=== PATIENT | female | born 1945 | race Caucasian/White ===

== ENCOUNTER 2022-03-01 08:40 | Day surgery (SDC) | payer OTHER ==
[2022-03-01 08:29] LABS: Absolute Lymphocytes (CBC) 0.9 K/uL (0.7-4.9); Hematocrit 34.3 % (36.0-45.0); MCV 86.6 fL (80-100); MPV 7.9 fL (7.6-11.3); RBC Red Blood Cell Count 3.97 M/uL (3.86-4.86)
--- NOTE | 2022-03-01 08:40 | RAD REPORT ---
EXAM DESCRIPTION: RAD - Chest Pa And Lat (2 Views) - 03/01/2022 8:29 am CLINICAL HISTORY: Pre op pending cholecystectomy COMPARISON: No comparisons FINDINGS: Lines: None. Lungs: No evidence of edema or pneumonia. Pleural: No significant pleural effusions or pneumothorax. Cardiac: The heart size is within normal limits. Mediastinum: Within normal limits. Bones: No acute fractures. Other: None IMPRESSION: No acute cardiopulmonary disease.
[2022-03-01 08:46] LABS: Albumin 3.4 g/dL (3.4-5.0); Bilirubin Direct 0.1 mg/dL (0-0.2); Bilirubin Total 0.4 mg/dL (0.2-1.0); Potassium 3.4 mmol/L (3.5-5.1); Protein, Total 7.4 g/dL (6.4-8.2)
[2022-03-01] MEDS ORDERED: propofoL 200 MG/20 ML VIAL IV ONE ×2 (09:29→09:30)
[2022-03-01] MEDS ORDERED: FENTANYL CITR 100 MCG/2 ML ONE ×2 (09:30)
[2022-03-01] MEDS ORDERED: ROCURONIUM 50 MG/5 ML VIAL IV ONE ×2 (09:30)
[2022-03-01] MEDS ORDERED: MIDAZOLAM HCL 2 MG/2 ML INJ ONE ×2 (09:30)
[2022-03-01] MEDS ORDERED: LIDOCAINE 2% MPF 5 ML VIAL ONE (09:30)
[2022-03-01] MEDS ORDERED: NA CHLORIDE 0.9% 1,000 ML ONE (09:31)
[2022-03-01] MEDS ORDERED: ONDANSETRON 4 MG/2 ML VIAL ONE ×2 (09:31→10:34)
[2022-03-01] MEDS ORDERED: CIPROFLOXACIN 400mg IV 400 MG/200 ML BAG IV ONE (09:36)
[2022-03-01] MEDS ORDERED: GLYCOPYRROLATE 0.2 MG/ML SYR ONE ×2 (09:52→10:34)
[2022-03-01] MEDS ORDERED: dexAMETHasone 10 MG/ML VIAL ONE (10:33)
[2022-03-01] MEDS ORDERED: NEOSTIGMINE 1 MG/ML -5 ML ONE (10:34)
[2022-03-01] MEDS ORDERED: KETOROLAC 30 MG/ML INJ ONE (10:34)
--- NOTE | 2022-03-01 11:05 | P.BOP ---
Preoperative diagnosis: Acute cholecystitis, symptomatic cholelithiasis, RUQ abd pain Postoperative diagnosis: same Primary procedure: Laparoscopic cholecystectomy Bag Bailer: MAGNOLIA OLIVIA (CORPORATE DEVELOPMENT MANAGER) Estimated blood loss: <10cc Specimen: gb Findings: distended edematous gallbladder Anesthesia: General Complications: None Transferred to: Recovery Room Condition: Good
--- NOTE | 2022-03-01 13:06 | EKG ---
Test Date: 2022-03-01 Test Time: 08:35:27 Cargo Inspector: MARJORIE MEASUREMENT RESULTS: Intervals: Rate: 63 TX: 148 QRSD: 130 QT: 454 QTc: 464 [place]: P: 61 TX: 148 QRS: -11 T: 0 INTERPRETIVE STATEMENTS: Normal sinus rhythm Right bundle branch block Abnormal ECG No previous ECG available for comparison Electronically Signed On 03-01-22 13:06:02 CDT by Israel Mullen
[2022-03-01 15:42] VITALS: TEMP 96.5; O2SAT 99
[2022-03-01 15:44] VITALS: BP 186/68
--- NOTE | 2022-03-02 15:50 | OP ---
Date of Procedure: 03/01/2022 Surgeon: Gareth Jung MD Scales Inspector: ADRIANNA Howell. Preoperative Diagnoses: Acute cholecystitis, symptomatic cholelithiasis, right upper quadrant abdomi nal pain. Postoperative Diagnoses: Acute cholecystitis, symptomatic cholelithiasis, right upper quadrant abdom inal pain. Procedure: Laparoscopic cholecystectomy. Estimated Blood Loss: Less than 10 mL. Specimen: Gallbladder. Finding: Distended and edematous gallbladder. Indication: This is the case of a female, who comes to us with above diagnoses. Fully explained the benefits, alternatives, and risks laparoscopic possible open cholecystectomy, which include, but not limited to infection, bleeding, damage to adjacent structures, anesthesia complication, choledocholi thiasis, bile leak, pancreatitis, HI, and even . She also understands this may not relieve any symptoms. She might need more than one surgical intervention. She understood, signed a consent. Procedure In Detail: The patient was brought to the operating room, placed in supine position. Anes thesia was done without complication. Abdominal area was prepped and draped in the usual sterile fas hion. Marcaine 0.5% was injected for local anesthetic followed by sharp incision of the skin in the infraumbilical region. The incision was carried down to fascia, which was opened under direct vision . Peritoneum was encountered, opened under direct vision. Vicryl #1 placed inside the fascia. Kennedy on trocar was carefully introduced. Pneumoperitoneum was obtained. I placed 3 more trocars, 5 mm ea ch one of them, 1 in the epigastric area, 2 in the right upper quadrant using same technique, which c onsisted of local anesthetic, sharp incision of the skin, and introduction of the trocars under direc t vision. This allowed me to put a grasper in the fundus of the gallbladder, another grasper in the infundibulum, retracting the gallbladder in the inferolateral fashion, exposing the triangle of Calot , and obtaining critical view. Cystic duct and cystic artery were clearly isolated, freed circumfere ntially and a connection between those and the gallbladder were clearly identified. I proceeded to l igate those by using at least 3 clips proximal, 1 clip distal, ligation in middle. Same was done wit h cystic artery. No bile leak. No bleeding. The gallbladder was removed from the liver using Bovie cauterizer and removed from abdominal cavity using EndoCatch through the umbilical incision. The ar ea was inspected once again. No bile leak. No bleeding. At that moment, I proceeded to remove the trocars under direct vision. Deflated pneumoperitoneum. Closed the fascia with #1 Vicryl. Irrigate d subcutaneous tissue, closed that with 3-0 chromic and skin approximated. Sponge count, instrument counts correct. The patient tolerated the procedure well. The patient was sent to recovery in sta e condition. AGUEDA/ISATU Voice ID: [id number] Report ID: [id number]
--- NOTE | 2022-03-02 15:50 | DS ---
Date of Discharge: 03/01/2022 Diagnoses: Acute cholecystitis, symptomatic cholelithiasis, right upper quadrant abdominal pain. Postoperative Diagnoses: Acute cholecystitis, symptomatic cholelithiasis, right upper quadrant abdom inal pain. Procedure: Laparoscopic cholecystectomy. Disposition: Home. Activity: As tolerated. No heavy lifting. Plan: Follow up in my office in 1 week. Call for appointment at [phone]. Keep area dry for 48 lilia rs, then may shower. Keep Steri-Strips intact. AGUEDA/ISATU Voice ID: [id number] Report ID: [id number]
== END 2022-03-01 12:20 | disposition home or self-care (01) ==
LOC: OR 08:40
PROVIDERS: ATTEND Surgery
PROC: 0FT44ZZ Resection of Gallbladder, Percutaneous Endoscopic Approach (ICD-10-PCS; principal; 2022-03-01 10:45)
DX: K80.10 Calculus of gallbladder with chronic cholecystitis without obstruction (principal); I10 Essential (primary) hypertension; E78.00 Pure hypercholesterolemia, unspecified; E11.9 Type 2 diabetes mellitus without complications; K21.9 Gastro-esophageal reflux disease without esophagitis
CPT/HCPCS: 93005 ×2; 85025; 80048; 36415; 82150; 82947 ×2; 80076; 88304; 83690; 71046; 47562; J2704; J2001; J3010; J1100; J2710; J7030; J2405; J0744; J2250